=== PATIENT | male | born 1990 | race Caucasian/White ===

== ENCOUNTER 2016-12-12 10:13 | Observation (INO) | payer OTHER ==
[2016-12-12] MEDS ORDERED: Thiamine IV 100 MG, Folic Acid IV* 1 MG, Multiple Vitamin IV ADULT* 10 ML in D5NS 0.9% ... IV ONE (10:40)
[2016-12-12] MEDS ORDERED: Diazepam SYRINGE* 5 MG/ML SYRINGE IV ONE (10:46)
[2016-12-12 11:03] LABS: Hematocrit 39 % (42-52); Hemoglobin 12.9 g/dl (14.0-18.0); Mean Corpuscular HGB Conc 33 g/dl (31-36); Mean Corpuscular Hemoglobin 29 pg (27-31); Mean Corpuscular Volume 89 fL (80-94); Mean Platelet Volume 7 um3 (7.4-10.4); Red Blood Count 4.41 10^6/ul (4.0-5.4); Red Cell Distribution Width 19 % (10.5-15); White Blood Count 6.8 10^3/ul (3.5-10.8)
[2016-12-12 11:22] LABS: ALT 54 U/L (7-52); Albumin 4.6 g/dL (3.2-5.2); Alkaline Phosphatase 87 U/L (34-104); BUN/Creatinine Ratio 11.5 (8-20); Blood Urea Nitrogen 10 mg/dL (6-24); CO2 Carbon Dioxide 23 mmol/L (22-32); Chloride 101 mmol/L (101-111); EGFR African American 134.4 (>60); EGFR Non-African American 104.5 (>60); Globulin 2.6 g/dL (2-4); Glucose 107 mg/dL (70-100); Lipase 42 U/L (11.0-82.0); Magnesium 1.8 mg/dL (1.9-2.7); Sodium 135 mmol/L (133-145); Total Protein 7.2 g/dL (6.4-8.9)
--- NOTE | 2016-12-12 11:35 | ED ---
Substance Abuse/Use - HPI Summary HPI Summary: 26M presents with alcohol withdrawal. He states last drink was 20 hours ago. He states he drinks a liter of vodka or other drinks a day. He states he has been using benzos to. He stopped his suboxone a week ago. He admits to anxiety , headache, tremors, and sweaty feeling. denies any nausea or vomiting. denies any auditory or visual hallucinations. denies any chest pain or SOB. denies any abdominal pain. headache is moderate. he had a script for valium but never picked it up. He states he gets tremulously when he withdrawals. has had to be admitted once for withdrawal. Started drinking 3 months ago daily. no history of seizures. He is trying to get into an detox center. - History Of Current Complaint Chief Complaint: EDDetoxRequest Stated Complaint: WITHDRAWAL Time Seen by Provider: 12/12/16 10:30 - Allergies/Home Medications Allergies/Adverse Reactions: Allergies Allergy/AdvReac Type Severity Reaction Status Date / Time No Known Allergies Allergy Verified 12/12/16 10:21 PMH/Surg Hx/FS Hx/Imm Hx Endocrine/Hematology History: Denies: Hx Anticoagulant Therapy Cardiovascular History: Denies: Hx Myocardial Infarction Infectious Disease History: Yes Infectious Disease History: Denies: Traveled Outside the [place] in Last 30 Days - Family History Known Family History: Positive: Hypertension Negative: Seizure Disorder - Social History Alcohol Use: Daily Substance Use Type: Reports: Other - benzos Review of Systems Negative: Fever Negative: Chest Pain Negative: Shortness Of Breath Negative: Vomiting, Nausea Neurological: Other - tremors Positive: Headache All Other Systems Reviewed And Are Negative: Yes Physical Exam Triage Information Reviewed: Yes Vital Signs On Initial Exam: Initial Vitals Temp Pulse Resp BP Pulse Ox 97.3 F 102 20 200/100 100 12/12/16 10:15 12/12/16 10:15 12/12/16 10:15 12/12/16 10:15 12/12/16 10:15 Vital Signs Reviewed: Yes Appearance: Positive: Well-Appearing Skin: Positive: Warm, Dry Head/Face: Positive: Normal Head/Face Inspection Eyes: Positive: Normal, EOMI, WENDY, Conjunctiva Clear ENT: Positive: Normal ENT inspection, Pharynx normal, TMs normal Respiratory/Lung Sounds: Positive: Clear to Auscultation, Breath Sounds Present Cardiovascular: Positive: Normal, RRR Abdomen Description: Positive: Nontender, Soft Bowel Sounds: Positive: Present Musculoskeletal: Positive: Other - tremors to arm Neurological: Positive: Sensory/Motor Intact, Alert, Oriented to Person Place, Time Diagnostics - Vital Signs Vital Signs Temp Pulse Resp BP Pulse Ox 12/12/16 11:18 22 12/12/16 11:00 85 99 12/12/16 10:30 151/104 12/12/16 10:15 97.3 F 102 20 200/100 100 - Laboratory Lab Results: Lab Results 12/12/16 12/12/16 Range/Units 10:55 10:55 WBC 6.8 (3.5-10.8) 10^3/ul RBC 4.41 (4.0-5.4) 10^6/ul Hgb 12.9 L (14.0-18.0) g/dl Hct 39 L (42-52) % MCV 89 (80-94) fL MCH 29 (27-31) pg MCHC 33 (31-36) g/dl RDW 19 H (10.5-15) % Plt Count 314 (150-450) 10^3/ul MPV 7 L (7.4-10.4) um3 Neut % (Auto) 68.6 (38-83) % Lymph % (Auto) 24.0 L (25-47) % [place] % (Auto) 5.3 (1-9) % Eos % (Auto) 1.0 (0-6) % Baso % (Auto) 1.1 (0-2) % Absolute Neuts (auto) 4.7 (1.5-7.7) 10^3/ul Absolute Lymphs (auto) 1.6 (1.0-4.8) 10^3/ul Absolute Monos (auto) 0.4 (0-0.8) 10^3/ul Absolute Eos (auto) 0.1 (0-0.6) 10^3/ul Absolute Basos (auto) 0.1 (0-0.2) 10^3/ul Absolute Nucleated RBC 0 10^3/ul Nucleated RBC % 0 Sodium 135 (133-145) mmol/L Potassium Pending Chloride 101 (101-111) mmol/L Carbon Dioxide 23 (22-32) mmol/L Anion Gap Pending BUN 10 (6-24) mg/dL Creatinine 0.87 (0.67-1.17) mg/dL Est GFR ( Amer) 134.4 (>60) Est GFR (Non-Af Amer) 104.5 (>60) BUN/Creatinine Ratio 11.5 (8-20) Glucose 107 H (70-100) mg/dL Calcium 9.0 (8.6-10.3) mg/dL Magnesium 1.8 L (1.9-2.7) mg/dL Total Bilirubin 0.70 (0.2-1.0) mg/dL AST Pending ALT 54 H (7-52) U/L Alkaline Phosphatase 87 (34-104) U/L Total Protein 7.2 (6.4-8.9) g/dL Albumin 4.6 (3.2-5.2) g/dL Globulin 2.6 (2-4) g/dL Albumin/Globulin Ratio 1.8 (1-3) Lipase 42 (11.0-82.0) U/L Serum Alcohol Pending Result Diagrams: 12/12/16 10:55 12/12/16 10:55 Lab Statement: Any lab studies that have been ordered have been reviewed, and results considered in the medical decision making process. Course/Dx - Course Course Of Treatment: 6M presents with alcohol withdrawal. He states last drink was 20 hours ago. He states he drinks a liter of vodka or other drinks a day. He states he has been using benzos to. He stopped his suboxone a week ago. He admits to anxiety, headache, tremors, and sweaty feeling. denies any nausea or vomiting. denies any auditory or visual hallucinations. denies any chest pain or SOB. denies any abdominal pain. headache is moderate. he had a script for valium but never picked it up. He states he gets tremulously when he withdrawals. has had to be admitted once for withdrawal. Started drinking 3 months ago daily. no history of seizures. he has a tremor on exam. is hypertension, mild diaphoresis. nontender abdomen. dr joe advised to call hospitalist as continues to be tackycardia and was very hypertensive even after couple doses of ativan and valium - Diagnoses Differential Diagnosis/HQI/PQRI: Positive: Alcohol Abuse, Alcohol Withdrawal, Delirium Tremens Provider Diagnoses: Alcohol withdrawal Discharge - Discharge Plan Condition: Stable Disposition: ADMITTED TO [facility]
[2016-12-12 11:36] LABS: Alcohol < 10 mg/dL (<10)
[2016-12-12] MEDS ORDERED: LORazepam INJ* 2 MG/ML 1 ML VIAL IV PUSH ONE ×3 (11:49→16:21)
[2016-12-12 12:03] LABS: Anion Gap 11 mmol/L (2-11)
[2016-12-12] MEDS: LORazepam TAB(*) 1 MG PO SCH ×3 (14:05→20:36)
[2016-12-12 14:07] LABS: Benzodiazepine Urine Screen Presumptive Positive (None Detect)
[2016-12-12] MEDS ORDERED: Ondansetron INJ* 2 MG/ML VIAL IV PRN (16:52)
[2016-12-12] MEDS ORDERED: Acetaminophen TAB* 325 MG PO PRN (16:52)
[2016-12-12] MEDS ORDERED: LORazepam TAB(*) 1 MG PO SCH (17:00)
[2016-12-12] MEDS ORDERED: Magnesium Sulfate 2 GM IV* 2 GM/50 ML BAG IVPB ONE (17:10)
[2016-12-12] MEDS: NS 0.9% 1000 ML* 1,000 ML IV SCH (17:59)
[2016-12-12] MEDS: Nicotine PATCH 21 MG/24 HR* PATCH TRANSDERM SCH (17:59)
[2016-12-12] MEDS: Baclofen TAB* 10 MG PO SCH (20:38)
[2016-12-12] MEDS: Gabapentin CAP(*) 300 MG PO SCH (20:38)
[2016-12-12] MEDS: cloNIDine TAB* 0.1 MG PO SCH (20:39)
[2016-12-12] MEDS ORDERED: Nicotine Patch Removal NOTE FOLLOW UP SCH (21:00)
[2016-12-12] MEDS ORDERED: traZODone TAB* 50 MG TAB PO SCH (21:00)
[2016-12-13] MEDS: LORazepam TAB(*) 1 MG PO SCH ×4 (00:28→06:06)
--- NOTE | 2016-12-13 02:31 | HP ---
CC: Cameron Escobar at [place], [place] * HISTORY AND PHYSICAL: DATE OF ADMISSION: 12/12/16 PRIMARY CARE PROVIDER: Dr. Cameron Escobar from [place], [place]. ATTENDING PHYSICIAN WHILE IN THE HOSPITAL: Dr. Ernestine Messer * (report dictated by Martinez Menjivar NP). CHIEF COMPLAINT: 1. EtOH abuse. 2. EtOH withdrawal. HISTORY OF PRESENTING ILLNESS: Mr. Alcazar is a 26-year-old male patient who carries a history of polysubstance abuse. He does have a history of IV drug use. He said that he had been clean for 4 years, although over the last several months he has been drinking more and more alcohol and he has noticed that when he stopped, he initially was becoming feeling some nauseated and vomiting and he would continue to drink to make him feel better. He felt that this has become a problem, affected his job. He needed to take a leave of absence. He was getting concerned, he was looking for rehab centers and he came into the ER today for detox. He while here started showing signs of EtOH withdrawal. He is becoming anxious. He was getting tachycardic, at times mildly hypertensive and he was also becoming sweaty. He says these are his typical signs of withdrawal. He says he has never had a seizure with withdrawal before, but there was concern on the ER's part that he may be exhibiting signs of early withdrawal, his last drink was about 24 hours ago, so we were asked to evaluate. He said he had been drinking about a liter of alcohol a day and came into the ED, was evaluated and again we were asked to evaluate for admission to help with his EtOH withdrawal. PAST MEDICAL HISTORY: Significant for substance abuse. PAST SURGICAL HISTORY: He has had a hernia repair. MEDICATIONS: Home medications according to his recall include: 1. Gabapentin 600 mg t.i.d. 2. Clonidine 0.2 mg b.i.d. 3. Baclofen 10 mg p.o. b.i.d. 4. Omeprazole 20 mg p.o. daily. 5. Zoloft 100 mg p.o. daily. 6. Trazodone 50 mg at bedtime. 7. Valium 10 mg p.o. t.i.d. as needed. 8. Suboxone 1 tab daily, but he has not taken this in over 2 weeks. ALLERGIES TO MEDICATIONS: No known drug allergies. FAMILY HISTORY: Both his parents had history of substance abuse. SOCIAL HISTORY: He is about a pack a day smoker. He does state that he is no longer using any illicit drugs, but does state that he is drinking alcohol on a daily basis. Last drinking around 24 hours ago. REVIEW OF SYSTEMS: There is no documented fever. He denied having any significant weight change. There was no double vision. He denies having any ear discharge. There is no rhinorrhea. No sore throat. No thyroid enlargement. Denied having any chest pain. No orthopnea. No nocturnal dyspnea. There is no abdominal pain. No nausea, no vomiting, no dysuria, no frequency, no seizure, no loss of consciousness, no pruritus, and no skin ulcerations. Review of 14 systems completed, all others negative. PHYSICAL EXAMINATION GENERAL: At this time, Mr. Alcazar is a 26-year-old male patient, appears to be well nourished and well developed. He does not appear to be in any acute distress. VITAL SIGNS: Reveals blood pressure 137/90 with a pulse of 90, respirations 22 , his O2 saturations were 98%, temperature 97.3. HEENT: Head is atraumatic, normocephalic. Eyes: EOMs are intact. Sclerae anicteric and not pale. Throat: Oral mucosa appears to be dry. No oropharyngeal erythema. NECK: Supple. LUNGS: Clear to auscultation bilaterally. No wheezes, rales, or rhonchi. HEART: Sounds S1, S2. Regular rate and rhythm. No murmurs, rubs, or gallops. ABDOMEN: Soft, flat, nontender. Bowel sounds are present. EXTREMITIES: Pulses 2+ throughout. He is able to move all 4 extremities with 5 /5 strength. NEUROLOGIC: He is awake, he is alert, he is oriented x3. His it architect are equal. Tongue midline. No gross focal deficits. SKIN: Intact. LABORATORY DATA/IMAGING: Labs today revealed a WBC of 6.8, RBC of 4.41, hemoglobin of 12.9, hematocrit 39, platelet count of 314. Sodium was 135, potassium pending, chloride of 101, bicarb 23, BUN 10, creatinine of 0.87, glucose 107, calcium 9.0, his mag was 1.8. His total bili 0.7, ALT 54, his albumin was 4.6, lipase is 42. Toxicology was positive for benzos, but otherwise negative. Old medical records reviewed. ASSESSMENT AND PLAN: Mr. Alcazar is a 26-year-old male patient coming in to the ER today with complaints of alcoholism with early signs of withdrawal. He will be admitted under observation status for: 1. Ethanol abuse with early signs of withdrawal. At this point, I did order a WAM protocol. He has been given a banana bag here in the ED. I have placed a social work consult and we will continue to follow. 2. History of anxiety and depression. We will continue with medications as described. 3. History of chronic pain. Continue his gabapentin and baclofen. 4. History of IV drug use in the past. Continue his clonidine and he is also not taking his Suboxone anymore, so we will hold off on this. 5. DVT prophylaxis. He will be placed on SCDs. 6. Code status. Full code. 7. Fluids, electrolytes and nutrition. He can have a regular diet. TIME SPENT: Time spent on the admission was approximately 60 minutes, greater than half the time was spent [id number] with the patient obtaining my history and physical, the other half of the time was spent on going over the plan of care with the patient and implementing the plan of care. I did discuss the plan of care with my attending, Dr. Messer, she is in agreement. MARTINEZ MENJIVAR NP [id number]/[facility] #: [id number] OTÑO
[2016-12-13 06:32] LABS: Hematocrit 35 % (42-52); Hemoglobin 11.5 g/dl (14.0-18.0); Mean Corpuscular HGB Conc 33 g/dl (31-36); Mean Corpuscular Hemoglobin 30 pg (27-31); Mean Corpuscular Volume 89 fL (80-94); Mean Platelet Volume 8 um3 (7.4-10.4); Red Blood Count 3.86 10^6/ul (4.0-5.4); Red Cell Distribution Width 19 % (10.5-15); White Blood Count 4.2 10^3/ul (3.5-10.8)
[2016-12-13 06:38] LABS: BUN/Creatinine Ratio 5.8 (8-20); Calcium 8.3 mg/dL (8.6-10.3); EGFR African American 175.6 (>60); EGFR Non-African American 136.5 (>60); Potassium 3.5 mmol/L (3.5-5.0)
[2016-12-13] MEDS ORDERED: LORazepam TAB(*) 1 MG PO SCH ×2 (08:36→09:00)
[2016-12-13] MEDS ORDERED: Multivitamins/Minerals TAB PO SCH (09:00)
[2016-12-13] MEDS ORDERED: Thiamine TAB* 100 MG TAB PO SCH (09:00)
[2016-12-13] MEDS ORDERED: Omeprazole CAP* 20 MG PO SCH (09:00)
[2016-12-13] MEDS ORDERED: Sertraline* 100 MG TAB PO SCH (09:00)
[2016-12-13] MEDS ORDERED: Folic Acid TAB* 1 MG PO SCH (09:00)
[2016-12-13] MEDS: Gabapentin CAP(*) 300 MG PO SCH ×2 (09:10→14:10)
[2016-12-13] MEDS: Nicotine PATCH 21 MG/24 HR* PATCH TRANSDERM SCH (09:10)
[2016-12-13] MEDS: Baclofen TAB* 10 MG PO SCH (09:10)
[2016-12-13] MEDS: cloNIDine TAB* 0.1 MG PO SCH (09:10)
[2016-12-13] MEDS ORDERED: Diazepam TAB(*) 10 MG PO PRN (11:01)
[2016-12-13] MEDS: NS 0.9% 1000 ML* 1,000 ML IV SCH (11:03)
[2016-12-13 16:18] VITALS: BP 130/68
--- NOTE | 2016-12-14 08:42 | DS ---
CC: Dr. Osmel Rosado; Dr. Cameron Escobar * DISCHARGE SUMMARY: DATE OF ADMISSION: 12/12/16 DATE OF DISCHARGE: 12/13/16 PRIMARY CARE PROVIDER: Dr. Cameron Escobar, [place], [place]. The patient's doctor who prescribes the patient Suboxone is Dr. Osmel Rosado in [place], [place]. DISCHARGE DIAGNOSES: 1. Alcohol withdrawal. 2. Anxiety. SECONDARY DIAGNOSES: 1. History of alcohol abuse. 2. History of narcotic abuse in the past. 3. History of hernia repair. 4. History of chronic low back pain. MEDICATIONS AT DISCHARGE: Include: 1. Gabapentin 600 mg 3 times a day. 2. Clonidine 0.2 mg b.i.d. 3. Baclofen 10 mg b.i.d. p.r.n. 4. Omeprazole 10 mg daily. 5. Zoloft 100 mg daily. 6. Trazodone 50 mg at bedtime. 7. Valium 10 mg t.i.d. as needed. 8. Suboxone. The patient ran out of his Suboxone prescription 2 weeks ago and he is planning to see Dr. Rosado tomorrow. 9. The patient was prescribed 15 tablets of Valium. I-STOP was checked and his last Valium prescription was on 12/02/16 and was a 3 days' worth prescription. HOSPITALIZATION COURSE: Jerry Alcazar is a 26-year-old male with history of alcohol and polysubstance abuse, who had been on Suboxone up to 2 weeks ago. Apparently, he had been in several hospitals in the [facility] and was withdrawing. He would go to a hospital, be there for a couple of days, go back home and drink a liter of vodka again. This time he was brought by his sister from [place]. The patient had been staying with his sister and he did not drink for a couple of days. He was extremely anxious when he presented to the ED and required several doses of Ativan. By the time of discharge, he was stable on Valium. In fact, it appears that he ran out of his Valium prescription and what originally was suspected to be alcohol withdrawal was mostly related to anxiety. The patient currently is stable, has very fine tremors in his bilateral upper extremities, but his gait is steady and he is oriented x3. He requests to be discharged, so he can follow up with his doctor who can prescribe him Suboxone tomorrow in [place]. I had an extensive discussion with the patient and the patient's sister. The patient's sisters are in the process of organizing for the patient an inpatient rehab. He also has an appointment with his primary care provider and his pain management doctor in a couple of days. LABORATORY DATA: On the day of discharge shows sodium of 138, potassium 3.5, chloride 109, carbon dioxide 23, BUN 4, creatinine 0.69. White blood cell count of 4.2, hemoglobin 11.5, hematocrit of 35, and platelets of 258,000. The patient is going to be discharged to follow up with his primary care provider as above mentioned. PHYSICAL EXAMINATION AT THE TIME OF DISCHARGE: Blood pressure is 129/81, heart rate of 67 and regular, respiratory rate 14, oxygen saturation 100% on room air , temperature 98.7. General: The patient is a very pleasant 26-year-old male who is in no acute distress. Alert, awake, and oriented x3. HEENT: Head atraumatic, normocephalic. Eyes: Pupils are equal, reactive to light and accommodation. Oropharynx clear. Mucosa moist. Neck: Supple. No JVD, no bruits bilaterally. Cardiovascular: Regular rate and rhythm. No murmur. Respiratory: Clear to auscultation bilaterally. Abdomen: Soft, nontender. Bowel sounds are present in all 4 quadrants. Extremities: There is no edema. Pulses +2 bilaterally. No clubbing or cyanosis. On evaluation of the skin, the patient has scant ecchymotic areas in his left flank after a fall several days ago that is resolving. On neuro evaluation, he has very fine remaining tremor mostly in the left upper extremity. Otherwise, his gait is nice and steady. He ambulates without support. His speech is clear. Cranial nerves II through XII are grossly intact. Motor strength is 5/5 bilaterally. The patient is recommended to follow up with his primary care provider in 4 to 7 days. He also has scheduled appointment with his doctor for pain management as well as his psychotherapist and his psychiatrist. [id number]/[facility] #: [id number] MTDD
== END 2016-12-13 16:30 | disposition home or self-care (01) ==
LOC: ED 10:13 → MED 15:25 → INTOOBSV 15:25
PROVIDERS: ADMIT Hospitalist; ATTEND Internal Medicine
DX: F10.239 Alcohol dependence with withdrawal, unspecified (principal); F41.9 Anxiety disorder, unspecified; Z79.899 Other long term (current) drug therapy; R00.0 Tachycardia, unspecified; F17.210 Nicotine dependence, cigarettes, uncomplicated; Z87.898 Personal history of other specified conditions; F19.21 Other psychoactive substance dependence, in remission
CPT/HCPCS: 36415; 80048; 80053; 80307; 80320; 83690; 83735; 85025; 96365; 96366; 96375; 99284; A9270-GY; G0378; G0480; J2060; J3360; J3411; J3475